=== PATIENT | female | born 1990 | race Caucasian/White ===

== ENCOUNTER 2016-10-23 22:26 | Emergency (ER) | payer SELFPAY ==
[~2016-10-23] VITALS: Wt 50.0 kg
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
[2016-10-24] MEDS ORDERED: IBUP-1542 PO (02:41)
[2016-10-24] MEDS ORDERED: HYDR-906 PO (02:41)
[2016-10-24] MEDS ORDERED: CYCL-319 PO (02:41)
[2016-10-24 03:18] VITALS: BP 131/86; PULSE 73; RESP 18; TEMP 98
== END 2016-10-24 03:19 | disposition home or self-care (01) ==
LOC: FTE 22:26
DX: S16.1XXA Strain of muscle, fascia and tendon at neck level, initial encounter (principal); S23.9XXA Sprain of unspecified parts of thorax, initial encounter; S20.212A Contusion of left front wall of thorax, initial encounter; S89.92XA Unspecified injury of left lower leg, initial encounter; V43.52XA Car driver injured in collision with other type car in traffic accident, initial encounter
CPT/HCPCS: 71010; 72040; 72072; 73562